=== PATIENT | female | born 1940 | race Caucasian/White ===

== ENCOUNTER 2016-11-14 06:40 | Observation (INO) | payer MEDICARE ==
[2016-11-09 11:47] LABS: BASOPHILS 0.2 %; BASOPHILS ABSOLUTE 0.02 10/3/uL (0.0-0.16); EOSINOPHILS 0.4 %; EOSINOPHILS ABSOLUTE 0.03 10/3/uL (0.0-0.53); HEMATOCRIT 47.3 % (36.0-48.0); HEMOGLOBIN 15.7 g/dL (12.0-16.0); IMMATURE GRANULOCYTES 0.1 %; IMMATURE GRANULOCYTES ABSOLUTE 0.01 10/3/uL (0.0-0.11); LYMPHOCYTES 33.6 %; LYMPHOCYTES ABSOLUTE 2.85 10/3/uL (0.67-4.30); MANUAL DIFF NO %; MEAN CORPUS HGB CONC 33.2 g/dL (32.0-36.0); MEAN CORPUSCULAR VOLUME 96.5 fL (80-100); MEAN PLATELET VOLUME 10.5 fL (9.2-13.0); MONOCYTES 7.2 %; MONOCYTES ABSOLUTE 0.61 10/3/uL (0.21-1.20); NEUTROPHILS 58.5 %; NEUTROPHILS ABSOLUTE 4.95 10/3/uL (2.02-8.40); PLATELET COUNT 198 10/3/uL (150-400); RBC DISTRIBUTION WIDTH 13.8 % (12.0-16.0); WHITE BLOOD CELLS 8.5 10/3/uL (4.5-10.5)
[2016-11-09 11:54] LABS: INTERNATIONAL NORMAL RATI 2.2 UNITS (-); PARTIAL THROMBO TIME 32.9 SEC (22.5-37.2)
[2016-11-09 11:55] LABS: PROTIME (NOT ORD) 24.5 SEC (12.0-14.5)
[2016-11-09 12:01] LABS: BUN (BLOOD UREA NITROGEN) 12 MG/DL (6-23); CALCIUM, SERUM 8.7 MG/DL (8.5-10.4); CHLORIDE, SERUM 102 MMOL/L (96-112); CO2 (CARBON DIOXIDE) 30 MMOL/L (24-34); CREATININE 0.92 MG/DL (0.55-1.02); GFR AFRICAN AMERICAN 71 ML/MIN (>=60); GFR NON AFRICAN AMERICAN 61 ML/MIN (>=60); GLUCOSE, SERUM 108 MG/DL (60-99); POTASSIUM, SERUM 3.9 MMOL/L (3.5-5.3); SODIUM, SERUM 144 MMOL/L (135-148)
--- NOTE | ~2016-11-14 | OP ---
Record Of Operation [facility] [address] [place]. [address] NAME: MARGAUX HAND : 41 STATUS : DIS Eros PAT#: [id number] AGE: 76 ADM/REG DATE : 11/14/16 MR#: [id number] REPORT SERV DATE: 11/15/16 DICTATED BY: PENG HOLLAND DATE: 11/15/16 REPORT STATUS : Draft TRANSCRIBED BY: MODL DATE: 11/15/16 DATE OF PROCEDURE: 11/14/2016 PREOPERATIVE DIAGNOSIS: Right neck mass with squamous atypia. POSTOPERATIVE DIAGNOSIS: Right neck mass with squamous atypia. OPERATIVE PROCEDURE PERFORMED: 1. Right supraomohyoid neck dissection. 2. Right base of tongue biopsy after microscopic direct laryngoscopy. 3. Tonsillectomy. INDICATIONS AND SIGNIFICANT HISTORY: The patient is a 76-year-old female smoker with a history of right neck mass. Needle biopsy had been performed and demonstrated a lesion consistent with a lesion that suggested squamous atypia. 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 At this point, she was also felt to benefit from a direct laryngoscopy and biopsy of any suspicious lesions, which could be a source for her neck node. OPERATIVE PROCEDURE AND FINDINGS: After informed consent was obtained, the patient was brought to the operating room and placed on the operating table in the supine position. At which point, general endotracheal anesthesia was induced by the Anesthesia Service, and the right neck was prepped and draped in a standard sterile fashion. A 15 blade scalpel was used to make a skin incision from about 2 cm below the mastoid tip into the lower third of the neck. Subplatysmal flap was elevated anteriorly and the fibrolymphatic packet anterior to the right sternocleidomastoid muscle was grasped with the Allis clamps and retracted laterally and anteriorly. This was taken down to the floor of the neck where the fibrolymphatic packet was advanced anteriorly over the floor of the neck. Then encountered the internal jugular vein and carotid artery. The fibrolymphatic packet was taken above the omohyoid muscle and taken up and over the internal jugular vein. It was then taken into the anterior neck. The same was used for the superior aspect of the neck, but the submandibular gland was at the superior border of the dissection. At this point, this removed a lesion as well as the surrounding lymph nodes. 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 At this point, a direct laryngoscopy was performed. No lesions were noted in the lateral pharyngeal wall except for a small amount of bleeding coming from the right base of tongue, biopsy was taken of this bleeding area, but no visible gross large tumor was noted in this area. Tonsillectomies were also performed, left tonsil then the right tonsil, and specimens were sent separately to Pathology. The patient at this point was turned back toward anesthesia, aroused from anesthesia, after closure of her right neck wound and taken to the postanesthesia care unit in satisfactory condition. COMPLICATIONS: None. ESTIMATED BLOOD LOSS: Less than 30 mL. Record Of Operation [facility] [id number] [place]. [address] NAME: MARGAUX HAND : 41 STATUS : DIS Eros PAT#: [id number] AGE: 76 ADM/REG DATE : 11/14/16 MR#: [id number] REPORT SERV DATE: 11/15/16 DICTATED BY: PENG HOLLAND. DATE: 11/15/16 REPORT STATUS : Draft TRANSCRIBED BY: MC DATE: 11/15/16 IV FLUIDS: Per Anesthesia. DLA/MODL Peng Holland M.D. / [id number] CC: Omi Ren M.D.
--- NOTE | ~2016-11-14 | DS ---
Discharge Summary [facility] [address] [place]. [address] NAME: MARGAUX HAND : 42 STATUS : ADM Eros PAT#: [id number] AGE: 76 ADM/REG DATE : 11/14/16 MR#: [id number] REPORT SERV DATE: 11/15/16 DICTATED BY: PENG HOLLAND. DATE: 11/15/16 REPORT STATUS : Draft TRANSCRIBED BY: MC DATE: 11/15/16 ADMISSION DATE: 11/14/2016 DISCHARGE DATE: 11/15/2016 ADMITTING DIAGNOSIS: Right neck mass, possible squamous-cell carcinoma. DISCHARGE DIAGNOSIS: Right neck mass, possible squamous-cell carcinoma. OPERATIVE PROCEDURE PERFORMED DURING THE COURSE OF ADMISSION: 1. Right supraomohyoid neck dissection. 2. Direct laryngoscopy with biopsy of the right base of tongue. 3. Tonsillectomy. ADMITTING HISTORY AND PHYSICAL: The patient is a 76-year-old female with significant smoking history. She has noticed a thin and enlarging neck mass in the right neck. Fine-needle aspiration biopsy suggested atypical squamous cells concerning for squamous-cell carcinoma. The patient was felt to benefit from excisional biopsy via supraomohyoid neck dissection and the right neck mass, as well as direct laryngoscopy and biopsy. HOSPITAL COURSE: The patient was admitted to the hospital on 11/14/2016 for surgical therapy. She underwent uneventful surgery and was admitted to the floor for postoperative observation and for wound monitoring. The patient subsequently had some intermittent nausea and was treated with oral ondansetron and IV Phenergan, as well as steroids. Her nausea did subside on the morning of 11/15/2016. She was sitting up in a chair, no difficulty breathing, and minimal difficulty in swallowing. Her Artemio Delgado drain had very little output and was largely serous in nature. Artemio-Delgado drain was pulled and she was deemed stable for discharge. DISPOSITION: To home. DISCHARGE MEDICATIONS: Include resumption of home medications including her Coumadin at a normal daily dose and she will return to clinic to see me in her scheduled appointment approximately one week. LEE ANN/MC Peng Holland M.D. / [id number] CC: Omi Ren M.D.
[~2016-11-14 06:40] MED LIST: ALEVE220 MG PO; JANTOVEN6 MG PO; LIPITOR20 PO; LOTREL1 CA1 PO; SYMBICORT 160/41 INH INH
[2016-11-14 07:15] LABS: PROTIME (NOT ORD) 13.2 SEC (12.0-14.5)
[2016-11-15] MEDS ORDERED: PR25 PO (08:21)
[2016-11-15] MEDS ORDERED: ZOFRAN ODT4 MG PO (08:21)
[2016-11-15] MEDS ORDERED: HYCET 7.5 MG-3473 ML PO (08:22)
== END 2016-11-15 11:34 | disposition home or self-care (01) ==
LOC: SDC 06:40 → 4SO 12:44
PROVIDERS: Otolaryngology
PROC: 0CTPXZZ Resection of Tonsils, External Approach (ICD-10-PCS; principal; 2016-11-14 09:00)
PROC: 0CBM8ZX Excision of Pharynx, Via Natural or Artificial Opening Endoscopic, Diagnostic (ICD-10-PCS; 2016-11-14 09:00)
PROC: 07T10ZZ Resection of Right Neck Lymphatic, Open Approach (ICD-10-PCS; 2016-11-14 09:00)
DX: R22.1 Localized swelling, mass and lump, neck (principal); I10 Essential (primary) hypertension; E78.00 Pure hypercholesterolemia, unspecified; J44.9 Chronic obstructive pulmonary disease, unspecified; M19.90 Unspecified osteoarthritis, unspecified site; E78.5 Hyperlipidemia, unspecified; Z86.718 Personal history of other venous thrombosis and embolism; Z86.73 Personal history of transient ischemic attack (TIA), and cerebral infarction without residual deficits; Z98.890 Other specified postprocedural states; Z79.899 Other long term (current) drug therapy; Z88.5 Allergy status to narcotic agent; Z82.49 Family history of ischemic heart disease and other diseases of the circulatory system; Z82.3 Family history of stroke; Z90.49 Acquired absence of other specified parts of digestive tract; Z98.41 Cataract extraction status, right eye; Z98.42 Cataract extraction status, left eye
CPT/HCPCS: 80048; 85025; 85610; 85730; 88304; 88305; 88307; 88331; 88332; 88341; 88342; 93005; 94640; 96374; 96375; 96376; A9270-GY; G0378; J0690; J2405; J2550; J3010